=== PATIENT | female | born 1975 | race Caucasian/White ===

== ENCOUNTER 2019-03-01 18:29 | Inpatient (IN) | payer OTHER ==
[~2019-03-01] VITALS: Ht 157.5 cm; Wt 107.5 kg
[~2019-03-01 18:29] MED LIST: ALBU0.0912 INH; GLU500 PO
[2019-03-01 18:35] VITALS: BP 140/87
--- NOTE | 2019-03-01 18:37 | NUR ---
TO LOBBY A/W BED AMBULATORY
--- NOTE | 2019-03-01 21:14 | NUR ---
44 Y/O FEMALE C/O LT SIDED NECK SWELLING AND PAIN X 1 YEAR. PT STATES SWELLING INCREASED RECENTLY. DENIES DIFFICULTY SWALLOWING/ SPEAKING. PT STATES 7/10 INTERMITTENT PULSATING PAIN. PT DENIES FEVER. NON TENDER TO TOUCH. VISIBLE SWELLING NOTED, NO BRUISING NOTED. RR EVEN AND UNLABORED. LMP 02/04/19. VSS MEDHX: ASTHMA ALLERGIES: NKA
--- NOTE | 2019-03-01 22:15 | NUR ---
PT RESTING IN BED, VISIBLE RISE AND FALL OF THE CHEST. PT ON CELLPHONE. BED LOCKED AND IN LOW POSITION. VSS. AT BEDSIDE
--- NOTE | 2019-03-01 22:48 | NUR ---
PT TAKEN TO CT
--- NOTE | 2019-03-01 23:07 | NUR ---
PT RETURN FROM CT
--- NOTE | 2019-03-02 00:50 | NUR ---
PT SITTING ON EDGE OF THE BED ON CELLPHONE. PT STATES NO PAIN AT THIS TIME. RR EVEN AND UNLABORED. VSS. WILL CONTINUE TO MONITOR.
--- NOTE | 2019-03-02 01:12 | NUR ---
X-Ray at bedside.
[2019-03-02] MEDS ORDERED: IBUP-2213 PO (01:24)
[2019-03-02] MEDS ORDERED: AMOX500C25 PO (01:26)
[2019-03-02 01:29] LABS: BASOPHILS # (AUTO) 0.1 K/uL (0.00-0.22); BASOPHILS % (AUTO) 0.7 % (0.0-2.0); EOSINOPHILS # (AUTO) 0.4 K/uL (0-0.4); EOSINOPHILS % (AUTO) 4.2 % (0.0-4.0); HEMOGLOBIN 13.5 g/dL (12.0-16.0); LYMPHOCYTES # (AUTO) 3.2 K/uL (2.5-16.5); LYMPHOCYTES % (AUTO) 37.9 % (20.5-51.1); MEAN CORPUSCULAR HEMOGLOBIN 29 pg (27-31); MEAN CORPUSCULAR HGB CONC 33 g/dL (33-37); MEAN CORPUSCULAR VOLUME 89.1 fL (80-94); MONOCYTES # (AUTO) 0.6 K/uL (0.8-1.0); MONOCYTES % (AUTO) 7.3 % (1.7-9.3); NEUTROPHILS # (AUTO) 4.3 K/uL (1.8-7.7); NEUTROPHILS % (AUTO) 49.9 % (42.2-75.2); PLATELET COUNT (AUTO) 331 K/uL (140-450); WHITE BLOOD COUNT (AUTO) 8.6 K/uL (4.8-10.8)
[2019-03-02 01:45] LABS: ANION GAP 13.6 (8-16); CARBON DIOXIDE 26.2 mmol/L (21-32); CREATININE 0.5 mg/dL (0.6-1.3); POTASSIUM 3.8 mmol/L (3.5-5.1)
[2019-03-02 01:56] LABS: ALBUMIN 3.4 g/dL (3.4-5.0); TOTAL BILIRUBIN 0.2 mg/dL (0.0-1.0)
[2019-03-02 01:59] LABS: APPEARANCE,URINE CLEAR (CLEAR); BILIRUBIN,URINE NEGATIVE (NEGATIVE); BLOOD, URINE NEGATIVE (NEGATIVE); COLOR,URINE YELLOW (YELLOW); LEUKOCYTE ESTERASE ,URINE NEGATIVE (NEGATIVE); NITRITE, URINE NEGATIVE (NEGATIVE); UGLUCOSE NEGATIVE (NEGATIVE)
[2019-03-02] MEDS ORDERED: ACETAMINOPHEN EXTRA STRENGTH 500 MG TAB PO PRN (02:00)
--- NOTE | 2019-03-02 02:00 | NUR ---
Patient will be admitted to care of DR CHAVES. Admited to MED SURG. Will go to room 105A. Belongings list completed. Report to JACINTA LANDAVERDE.
--- NOTE | 2019-03-02 02:00 | NUR ---
RECEIVED BEDSIDE REPORT FROM ER NURSE. PATIENT IS AWAKE, ALERT, AND COOPERATIVE. ADMITTING DIAGNOSIS LYMPHODEMA. RESPIRATION EVEN UNLABORED ON ROOM AIR. NO DISTRESS NOTED. SKIN IS WAR,M AND DRY. IV PATENT AND INTACT. HEART RATE REGULAR. S1&S2 NOTED. LUNGS SOUNDS CLEAR ON AUSCULTATION. BOWEL SOUNDS PRESENT IN ALL QUADRANTS. ABDOMEN SOFT AND NON-TENDER. LAST BM 03/01/19. MRSA SCREEN DONE. VITALS WERE TAKEN. PLAN OF CARE WAS DISCUSSED. ALL SAFETY MEASURES IN PLACE. ORIENT PATIENT TO ROOM, STAFF, AND CALL LIGHT. BED IS AT LOW POSITION. CALL LIGHT WITHIN REACH AND VERBALIZES ITS USE. WILL CONTINUE TO MONITOR.
--- NOTE | 2019-03-02 02:05 | NUR ---
DR YOUNG NOTIFIED REGARDING HOME MEDS, STATED TO HOLD IT FOR NOW.
[2019-03-02 02:36] VITALS: BP 142/67
--- NOTE | 2019-03-02 03:25 | NUR ---
CHECKED PATIENT. PATIENT SLEEPING RESPIRATION EVEN UNLABORED ON ROOM AIR. NO DISTRESS NOTED. WILL CONTINUE TO MONITOR.
--- NOTE | 2019-03-02 04:00 | NUR ---
PATIENT IS ANXIOUS AND CANT FALL ASLEEP. ASKING FOR SLEEPING AID TOLD PATIENT WE CANNOT GIVE ANY SLEEPING AID AT THIS TIME.
--- NOTE | 2019-03-02 07:29 | NUR ---
ENDORSED PATIENT TO DAY SHIFT NURSE. PATIENT IN STABLE CONDITION.
--- NOTE | 2019-03-02 07:34 | NUR ---
RECEIVED PT FROM S IRON WORKER NURSE, SAIMA, PT IS AWAKE AND SEATED ON THE BED WITH SISTER ON THE BEDSIDE, IV LINE ON THE RT AC G. 20 ON SALINE LOCK, PT DENIES PAIN, AOX4, ON RA AND DENIES PAIN, WILL MONITOR PT.
[2019-03-02 08:00] VITALS: BP 122/70
--- NOTE | 2019-03-02 08:13 | NUR ---
DR. CHAVES CAME TO THE PT'S ROOM AND TALKED TO THE PT AND MADE AN ORDER FOR THE PT FOR A CT OF CHEST, ABDOMEN AND PELVIS WITH CONTRAST.
--- NOTE | 2019-03-02 08:43 | NUR ---
PT SIGNED CONSENT FOR THE CT OF ABDOMEN, CHEST AND PELVIS WITH CONTRAST.
--- NOTE | 2019-03-02 09:05 | NUR ---
PATIENT HAS BEEN SCREENED AND CATEGORIZED LOW NUTRITION RISK. PATIENT WILL BE SEEN WITHIN 5-7 DAYS OF ADMISSION. 03/06/19-03/08/[address]
--- NOTE | 2019-03-02 11:30 | NUR ---
PT DENIES PAIN AND IS TALKING TO FAMILY NOW. PT WAS PLACED ON NPO FOR THE CT.
--- NOTE | 2019-03-02 13:21 | NUR ---
Binman Note: Basic Screen: Yes High Risk DC Screen Staves: SEAN Zambrano Relationship: Pre-Admission Living Arrangements: Lives with Other Prior ADL Independent Current Home Health Name/Tel: N/A Current DME/02 Name/Tel: N/A Current Hospice Name/Tel: N/A Current Dialysis Name/Tel: N/A Healthcare Decision Maker: Patient Advance Directive No - REFUSED Information Taught: Advance Directive Person Taught: Patient Teaching Tools: Verbal Factors Affecting Learning: None Participation Level: Refused Evaluation: Verbalizes Understanding Discipline: Case Mgt/Social Svcs Tentative Discharge Plan/Destination: No Needs Identified Will require assistance post discharge: No Referred to Machine Deburrer: No Tentative Discharge Plan Summary: Patient is a 44-year-old female admitted for lymphoma. Patient has PMHX of asthma and diabetes. Patient was admitted from home. SW verified demographics with patient. Patient reports no history of mental health and no history of substance abuse. SW provided education on advanced directive but patient refused. Patient's tentative discharge plan is to return home. No further needs identified. Signature: MESERET Antonio Date: Mar 02, 2019 Time: 13:20
--- NOTE | 2019-03-02 15:03 | NUR ---
PCP appointment: DAVID contacted Julia from Dr. Edison Pollock's office to schedule hospital follow up for patient [phone]. DAVID arranged appointment for 1110 on 03/09/2019 @ [address] [place] [address]. Appointment slip was left in patient's chart to be given at discharge. No further needs identified.
--- NOTE | 2019-03-02 18:15 | NUR ---
PT IS OFF THE UNIT FOR A CT OF CHEST,ABDOMEN AND PELVIS.
[2019-03-02 18:34] VITALS: BP 128/72
--- NOTE | 2019-03-02 19:31 | NUR ---
RECIEVED PT AAOX4 , NID , DENIES ANY PAIN , IV SITE INTACT AND PATENT , RELATIVES AT BEDSIDE . PLAN OF CARE DISCUSSED AND VERBALIZED UNDERSTANDING . ATE FOOD - WELL TOLERATED . NO FURTHER CPOMPLAIN MADEB AT NTHIS TIME . CALL LIGHT WITHIN REACH . WILL CONT. TO MONITOR.
--- NOTE | 2019-03-02 19:31 | NUR ---
ENDORSED PT TO TRANSMISSION BUILDER NURSERASHEL FOR CONTINUITY OF CARE.
--- NOTE | 2019-03-02 22:00 | NUR ---
MADE ROUNDS , NO S/SX OF ACUTE DISTRESS NOTED AT THIS TIME .
--- NOTE | 2019-03-02 23:00 | NUR ---
RECEIVED REPORT FROM JACINTA KISER FOR CONTINUITY OF CARE. PT IS ASLEEP. NO S/S OF ANY DISCOMFORT NOTED. .WILL CONTINUE TO MONITOR.
--- NOTE | 2019-03-02 23:00 | NUR ---
ENDORSED TO CECILIA HALE FOR CONT. OF CARE. PT IS ON STABLE CONDITION.
[2019-03-03 00:15] VITALS: BP 104/65
--- NOTE | 2019-03-03 00:30 | NUR ---
PAGED DR. CHAVES FOR PT C/O SORE THROAT. DR. BELLO HAND LEATHER TRIMMER. CALLED BACK AND MADE AWARE OF PT CONCERN. WITH ORDER CARRIED OUT.
[2019-03-03] MEDS: BENZOCAINE/MENTHOL 1 LOZ MM PRN ×3 (00:59→10:39)
--- NOTE | 2019-03-03 01:00 | NUR ---
PT IS ASLEEP. NO S/S PAIN NOTED.
--- NOTE | 2019-03-03 03:00 | NUR ---
MADE ROUNDS. PT ASLEEP. NO DISCOMFORT NOTED AT THIS TIME.
--- NOTE | 2019-03-03 05:40 | NUR ---
PT C/O SORE THROAT. WILL MEDICATE WITH CEPACOL LOZENGES.
--- NOTE | 2019-03-03 07:45 | NUR ---
ENDORSED PT IN STABLE CONDITION TO AM NURSE.
--- NOTE | 2019-03-03 07:50 | NUR ---
RECEIVED REPORT FROM NIGHT CHARGE NURSE, CECILIA, PT IS AWAKE AND SEATED ON THE BED WITH IV ON RT AC G. 20 ON SALINE LOCK, PT DENIES PAIN AND NO SIGN OF DISTRESS NOTED. SIDE RAILS ARE UP AND CALL LIGHT WITHIN REACH, WILL CONTINUE TO MONITOR PT.
[2019-03-03 08:00] VITALS: BP 107/75
--- NOTE | 2019-03-03 10:39 | NUR ---
PT WAS GIVEN A LOZENGES FOR THE SORE THROAT COMPLAIN AND PT IS VERBALIZING NOW THAT SHE WANTS TO GO HOME AND WILL JUST SEE [facility] PCP. WILL INFORM MD
--- NOTE | 2019-03-03 11:01 | NUR ---
PAGED DR. CHANDRA AND LET MESSAGE TO HIS VOICEMAIL, REGARDING THE CONSULT FOR THE PT, AWAITING CALL BACK FROM DR. CHANDRA.
--- NOTE | 2019-03-03 11:30 | NUR ---
PAGED DR. CHAVES TO LET MD KNOW THAT PT IS VERBALIZING THAT SHE WANTS TO LEAVE AGAINST MEDICAL ADVISE.
--- NOTE | 2019-03-03 12:01 | NUR ---
PT VERBALIZED WANTING TO LEAVE AGAINST MEDICAL ADVICE, MICA SIZERRAJEEV SPOKE TO PT AND PT IS VERY EAGER TO LEAVE, EVEN WITHOUT THE DISCHARGE ORDER FROM DR. CHAVES, PT SIGNED AMA FORM NOW.
[2019-03-03 12:17] VITALS: BP 120/63
--- NOTE | 2019-03-03 12:45 | NUR ---
DR. MARYCRUZ CHANDRA CAME TO THE UNIT BUT INFORMED MD THAT PT LEFT AMA AND WAITING FOR THE CALL BACK FROM DR. ANDIE MD SAID THAT HE WILL INFORM DR. CHAVES
== END 2019-03-03 12:05 | disposition left against medical advice (07) | DRG 663 ==
LOC: MED 18:29 → MTU 03-02 01:07
PROVIDERS: ADMIT Internal Medicine; ATTEND Internal Medicine
DX: R59.0 Localized enlarged lymph nodes (principal); Z68.41 Body mass index [BMI] 40.0-44.9, adult; J45.909 Unspecified asthma, uncomplicated; E66.9 Obesity, unspecified; E11.9 Type 2 diabetes mellitus without complications; Z53.29 Procedure and treatment not carried out because of patient's decision for other reasons; Z79.84 Long term (current) use of oral hypoglycemic drugs; Z79.899 Other long term (current) drug therapy
CPT/HCPCS: 36415; 70490; 71045; 71260; 80053; 81003; 85025; 87081; 93005; Q0092; Q9967